=== PATIENT | male | born 1950 | race Hispanic/Latino ===

== ENCOUNTER 2019-04-06 11:06 | Emergency (ER) | payer MEDICARE, MEDICAID ==
[2019-04-06] MEDS ORDERED: Amlodipine 5 MG TAB ONE (12:02)
[2019-04-06 12:16] LABS: #Lymphocytes 1.4 thou/uL (1.20-3.40); #Monocytes 0.3 thou/uL (0.11-0.59); #Neutrophils 4.6 thou/uL (1.40-6.50); %Basophils 0.5 % (0.0-1.0); %Eosinophils 0.5 % (0.0-10.0); %Lymphocytes 21.6 % (21.0-51.0); %Monocytes 4.3 % (0.0-10.0); %Neutrophils 73.1 % (42.0-75.0); Hemoglobin 13.2 g/dL (14.0-18.0); Mean Corpuscular Hemoglobin 28.5 pg (27.0-31.0); Mean Corpuscular Volume 89.2 fL (78.0-98.0); Mean Platelet Volume 8.2 fL (7.4-10.4); Platelet Count 121 thou/uL (130-400); RBC Distribution Width 12.8 % (11.5-14.5); Red Blood Cell (RBC) Count 4.61 mill/uL (4.70-6.10); White Blood Cell (WBC) Count 6.3 thou/uL (4.8-10.8)
--- NOTE | 2019-04-06 12:25 | RAD ---
Chest AP view INDICATION: Chest pain with right-sided hernia COMPARISON: June 24, 2015 FINDINGS: Lungs:The lungs are clear Cardiac silhouette:Heart size is accentuated by exam technique. Pulmonary vasculature:Normal Pleural spaces:No pleural effusion or pneumothorax is demonstrated. Upper abdomen:No abnormality seen. Osseous structures: Stable healed fracture deformity of the left mid shaft clavicle. No acute osseous abnormality. Additional findings:None. IMPRESSION: No acute cardiopulmonary abnormality.
[2019-04-06 12:32] LABS: ALT (SGPT) 15 U/L (8-55); AST (SGOT) 16 U/L (5-34); Alkaline Phosphatase 65 U/L (40-110); Anion Gap 13 mmol/L (10-20); BUN (Urea Nitrogen) 16 mg/dL (8.4-25.7); Bilirubin, Total 0.6 mg/dL (0.2-1.2); Calc. Creatinine Clearance 0 mL/min (70-130); Calcium 8.9 mg/dL (7.8-10.44); Carbon Dioxide 27 mmol/L (23-31); Chloride 105 mmol/L (98-107); Estimated GFR-MDRD 72; Globulin 3.6 g/dL (2.4-3.5); Glucose 88 mg/dL (80-115); Potassium 4.5 mmol/L (3.5-5.1); Protein, Total 7.6 g/dL (5.8-8.1); Sodium 140 mmol/L (136-145)
== END 2019-04-06 13:30 | disposition home or self-care (01) ==
LOC: MADERS 11:06
DX: K40.90 Unilateral inguinal hernia, without obstruction or gangrene, not specified as recurrent (principal); I10 Essential (primary) hypertension
CPT/HCPCS: 71045; 80053; 83880; 85025; 93005

== ENCOUNTER 2020-02-06 16:15 | Inpatient (IN) | payer MEDICARE, OTHER ==
[2020-02-06] MEDS: Acetaminophen 325 MG TAB PO SCH ×2 (17:07→23:58)
[2020-02-06] MEDS: Triple Antibiotic Oint 1 GM Packet TOP SCH (21:01)
[2020-02-06] MEDS: Famotidine 20 MG TAB PO SCH (21:01)
[2020-02-06] MEDS: Cyclobenzaprine 10 MG TAB PO PRN (21:02)
[2020-02-06] MEDS: Senokot S 8.6-50 MG TAB PO SCH (21:02)
[2020-02-07] MEDS: Acetaminophen 325 MG TAB PO SCH ×4 (05:30→22:32)
[2020-02-07] MEDS: Acetaminophen/Codeine 30-300mg Tablet PO PRN ×2 (08:29→22:34)
[2020-02-07] MEDS: Senokot S 8.6-50 MG TAB PO SCH ×2 (08:29→22:31)
[2020-02-07] MEDS: Famotidine 20 MG TAB PO SCH ×2 (08:29→22:30)
[2020-02-07] MEDS: Polyethylene Glycol 3350 17 GM Packet PO SCH (08:31)
[2020-02-07] MEDS: Lisinopril 20 MG TAB PO SCH (08:31)
[2020-02-07] MEDS: Triple Antibiotic Oint 1 GM Packet TOP SCH ×3 (08:31→22:33)
[2020-02-07] MEDS: Amlodipine 5 MG TAB PO SCH (08:42)
[2020-02-07] MEDS ORDERED: FLU VACC QS2020-21(65YR UP)/PF 240 MCG/0.7 ML SYRINGE IM ONE (09:00)
[2020-02-07 18:18] VITALS: BMI 25.8
[2020-02-08] MEDS: Cyclobenzaprine 10 MG TAB PO PRN (01:09)
[2020-02-08] MEDS: Acetaminophen 325 MG TAB PO SCH ×2 (05:22→11:56)
--- NOTE | 2020-02-08 05:23 | HP ---
REASON FOR ADMISSION: Skilled rehab in [facility] after recent hospitalization. NEUROSURGEON: Dr. Foley. HISTORY OF THE PRESENT ILLNESS AND HOSPITAL COURSE: Mr. Lane is a 69-year-old male, who has a history of ground level fall. The patient was reported to be pulling a tree stump when it let loose causing him to fall backwards, hitting his left side of the head. Per report, the patient did have a brief loss of consciousness with no other associated symptoms. He presented initially to [facility] with a GCS of 15. CT of the Brain in 02/04/2020 showed acute traumatic 3cm, right lateral temporal lobe intraaxial hematoma; acute traumatic subdural hematoma, along right tentorium cerebelli; acute traumatic petechial parenchymal hemorrhages with possible adjacent traumatic subarachnoid hemorrhage at right temporal tip; acute traumatic ,nondisplaced left temporal bone fracture. Chest Xray showed multiple old traumatic fractures of the left clavicle and left ribs. CT of cervical spine showed evidence of possible intraparenchymal hemorrhage. in the right temporal lobe,subdural hemorrhage at right tentorium, Left mastoid and Questionable fracture of the medial left third rib posteriorly;temporal bone fracture; hemorrhagic fluid within the right and left maxillary sinuses..Probable several less than 0.4 pulmonary nodules in the right and left apices region. The patient was then transferred subsequently to [facility] for further neurosurgical evaluation and observation. The patient was initially on a Cardene drip due to severe hypertension. He was also started on Amlodipine on the day of admission. As blood pressure has stabilized, the patient was started back on Lisinopril and Cardene drip was discontinued. It was reported that patient was supposed to be on both Lisinopril and Amlodipine per home medications but reported not taking the medications prior to this admission. His repeat CT of the head at [facility] showed stable hemorrhagic contusion of the right posterotemporal lobe and subdural hemorrhage along the right tentorium and posterior falx, suggestive of trace subarachnoid hemorrhage along the left superior frontal convexity that is unchanged. CT scan of the auditory canal without contrast on 02/05/2020 showed longitudinal fracture of the left temporal lobe. Neurosurgeon reports that this is likely an L1 compression fracture that neurosurgeon indicated that this does not require a brace or surgical intervention. The patient was then placed on pain regimen for his back. Speech, Physical, and Occupational Therapy were consulted and worked with the patient. The patient was reported to have some difficulties ambulating initially. After stabilizing the patient, it was deemed that the patient would benefit further from skilled rehab or swing bed for continued physical and occupational therapy. He was then transferred to [facility] on 02/06/2020 with stable condition. Upon admission, the patient was awake, alert, oriented with spontaneous speech. He reports pain mostly on the lower thoracic region. He denies significant headache. His initial admitting vital signs showed moderately elevated systolic blood pressure of 160/87. Otherwise, the patient reports no other new concerns at this time. The patient could hardly contribute to his history, no family was present at bedside during the assessment. Most of the information were taken from the hospital records. PAST MEDICAL HISTORY: Hypertension, previously on Norvasc and lisinopril, but admits has not been taking his medications lately or prior to this hospitalization. PAST SURGICAL HISTORY: Inguinal hernia in 2019. SOCIAL HISTORY: Lives at home with his . Denies alcohol, illicit drug use, or smoking history. ALLERGIES: NKDA. MEDICATIONS: Lisinopril 20 mg po qd; Amlodipine 10 mg po QD Tylenol #3 po qd. Polyethylene Glicol 17 gram PO QD; Senosside Docusate PO BID; Tylenol 650 PO q 6hr,prn. REVIEW OF SYSTEMS: GENERAL: Denies fever, chills. Reports fatigue and general weakness. HEENT: Denies acute visual changes, hearing changes, or cold symptoms. RESPIRATORY: Denies cough, pain with breathing, sputum production/bloody sputum, wheezing. CARDIO: Denies chest pain, palpitations, dyspnea on exertion. GI: Denies nausea, vomiting, abdominal pain, diarrhea/constipation, or incontinence. GENITOURINARY: Denies dysuria, hematuria, frequency, urgency, or incontinence. MUSCULOSKELETAL: As per HPI. Denies joint swelling, myalgia. SKIN: Has abrasions on the left ear and scalp. No rashes. No pruritus. NEUROLOGIC: Reports lost of consciousness as per HPI. No acute motor or sensory changes, loss of coordination. Gait is unsteady. PSYCH: Denies depressive symptoms or anxiety, insomnia. PHYSICAL EXAMINATION: VITAL SIGNS: Blood pressure 161/87, temperature 99.7, pulse 89, respirations 20, and O2 saturation 96% on room air. GENERAL: The patient is awake, alert, and oriented x3. Not in distress. Spontaneous speech, Vietnamese speaking. HEENT: Normocephalic. PERRL. Intact EOM. Anicteric sclerae. Mildly swollen left ear upper lobe, Oral mucosa is moist.Tongue is in midline,no tremors. NECK: Supple, Limited CSpine ROM due to discomfort. No swelling noted. C-SPINE: With full ROM. No swelling. Nontender to palpation. Flat JVD. No carotid bruit. CHEST: Normal excursion. Nonlabored breathing. RESPIRATORY: Clear to auscultation bilaterally. No rales. No wheezing. No crackles. No rhonchi. ABDOMEN: Soft, flat, nondistended. Normoactive bowel sounds. Nontender. No rebound or guarding. Reports flank tenderness on direct palpation bilaterally. MUSCULOSKELETAL: No joint effusion. No erythema. Moves all extremities symmetrically. SKIN: Superficial laceration on the left earlobe, upper part, covered with dry blood. Superficial laceration on the temporal region behind the left ear. No signs of infection. No periwound erythema. No drainage. NEUROLOGIC: Awake, alert x3. Answers simple questions with appropriateness. follows simple commands. DTRs 2+. Nonfocal. Grossly intact CN II-XII as tested. OTHER LABS AND TESTS: 02/06/2020, WBC 12.9, hemoglobin 13.3, hematocrit 38.8, and platelets 170. PT 15.8, INR 1.2, aPTT 34.4. Sodium 138, potassium 3.3, BUN 13, creatinine 0.80, eGFR greater than 90, glucose 105, magnesium 2, and phosphorus 2.5. CK kinase on 02/04/2020, 472. COVID PCR 02/04/2020, not detected. Thoracic spine x-ray on 02/05/2020, no fracture. Lumbar spine x-ray on 02/05/2020, possible acute compression fracture of the L1. Chest x-ray, no acute pulmonary findings with multiple old traumatic fractures of the left clavicle and left ribs. Brain CT with 3 x 2 cm acute intraaxial hematoma at the lateral aspect of the right temporal lobe with multiple focal hemorrhages in the anterior portion of the right temporal lobe at the temporal tip and possibly adjacent subarachnoid hemorrhage. There is a subdural hematoma along the right side of the tentorium cerebelli. There is a nondisplaced linear fracture towards the left mastoid bone, directed to the left middle ear canal, incompletely visualized. CT of the spine with several small pulmonary nodules seen in the lung apices. ASSESSMENT AND PLAN: 1. Physical deconditioning and general weakness. 2. Multiple injuries from traumatic fall. 3. Left skull fracture, right temporal bone fracture, nondisplaced linear fracture of the Left mastoid bone towards the middle ear, likely ruptured tympanic membrane, right tentorium subdural hemorrhage, intraparenchymal hemorrhage of right temporal lobe, possible third left rib fracture versus old fracture. Possible L1 compression fracture. 4. Superficial skin laceration of the left ear lobe and superficial scalp laceration of the left temporal region 3. Incidental findings of several small 0.4 cm pulmonary nodules in the lung apices, by CT scan findings. 4. Fall from standing with loss of consciousness. 5. Hypertension. 6. Unsteady gait. The patient is admitted to [facility] for skilled rehab. Refer to PT,OT, and Speech for evaluation and treatment. Continue current medications tocontrol the BP. Titrate medications appropriately depending on the hospital course. Continue current diet as previously ordered until further recommendations from speech therapist when seen. Wound care with triple antibiotic t.i.d. Estimated Length of Stay: 1-2 weeks Code status, reports full code per wishes. Disposition, home with once appropriate. Job ID: [id number] MTDD
[2020-02-08] MEDS: Triple Antibiotic Oint 1 GM Packet TOP SCH ×2 (09:08→14:59)
[2020-02-08] MEDS: Amlodipine 5 MG TAB PO SCH (09:08)
[2020-02-08] MEDS: Polyethylene Glycol 3350 17 GM Packet PO SCH (09:09)
[2020-02-08] MEDS: Lisinopril 20 MG TAB PO SCH (09:09)
[2020-02-08] MEDS: Famotidine 20 MG TAB PO SCH (09:09)
[2020-02-08] MEDS: Senokot S 8.6-50 MG TAB PO SCH (09:09)
[2020-02-08 17:10] VITALS: BP 132/84; TEMP 98.3
--- NOTE | 2020-02-12 10:02 | DIS ---
DATE OF ADMISSION: 02/06/2020 DATE OF DISCHARGE: 02/08/2020 REASON FOR ADMISSION: Skilled rehab in [facility] after recent hospitalization. DIAGNOSES: 1. Deconditioning, general weakness secondary to recent fall. 2. Multiple injuries from traumatic fall. 3. Left skull fracture, Right temporal bone fracture; nondisplaced linear fracture of the Left mastoid bone towards the middle ear, likely ruptured tympanic membrane, right tentorium subdural hemorrhage, intraparenchymal hemorrhage, right temporal lobe, possible third left rib fracture versus old fracture, possible L1 compression fracture. 4. Left ear abrasion, superficial scalp laceration, left temporal region 5. Incidental findings of several small 0.4 cm pulmonary nodules in the lung apices by CT scan findings. 6. Fall from standing with loss of consciousness. 7. Hypertension. 8. Unsteady gait. 9. Wandering behavior. MEDICATION: 1. Amlodipine 10 mg p.o. daily. 2. Lisinopril 20 mg p.o. daily. 3. Acetaminophen 650 mg p.o. q.6 hours p.r.n. DISPOSITION: Home with . CONDITION ON DISCHARGE: Stable. DIET: Low-salt, low-fat AHA. ACTIVITY: Ad wanda. Recommending 24/7 supervision at home secondary to wandering behavior. HISTORY OF THE PRESENT ILLNESS AND HOSPITAL COURSE: Mr. Lane is a 69-year-old Japanese male with history of fall from a standing position associated with loss of consciousness. The patient sustained multiple injuries from this acute traumatic injury. He was initially seen at [facility] on 02/04/2020, with a GCS of 15. His CT of the brain, CT of the spine, CS spine, and chest x-ray showed acute traumatic 3 cm right lateral temporal lobe intra-axial hematoma, acute traumatic subdural hematoma along the right tentorium cerebelli, acute traumatic petechial parenchymal hemorrhages with possible adjacent traumatic subarachnoid hemorrhage at the right temporal tip, acute traumatic nondisplaced left temporal bone fracture, multiple old traumatic fractures of the left clavicle and left ribs, left mastoid hemorrhage, questionable fracture of the left medial 3rd rib posteriorly, hemorrhagic fluid with the right and left maxillary sinuses, several less than 0.4 cm pulmonary nodules in the right and left apices region. The patient was subsequently transferred to [facility] in [place] for further neurosurgical evaluation and observation. Upon admission, the patient's blood pressure was notably elevated. He was started initially on Cardizem drip and continued on oral medications including amlodipine and lisinopril after blood pressure has been stabilized. A CT of the head at [facility] showed stable findings. A CT scan of the auditory canal without contrast on 02/05/2020 showed no acute evidence of fracture of the left temporal bone. The neurosurgeon evaluated the patient and reports that there was likely an L1 compression fracture. The neurosurgeon indicated this does not require a brace or surgical intervention. The patient was then treated for pain regimen. Physical and occupational therapy were consulted. There were reported difficulties of ambulating initially and after stabilizing the patient, he was recommended to have further rehab in [facility] . On 02/06/2020, patient was transferred to [facility] for rehab purposes. The patient was initially cooperative and takes his medications consistently. He started walking in the first 24 hours of skilled rehab stay. He ambulates without assistance on the second day. On 02/08/2020, the patient has been walking around and wandering all over without use of assistive device. He wears a neck pillow all the time to support his neck. Overall pain was adequately controlled His blood pressure has been stable. Later that day, the patient was reported missing. Patient found in the parking lot wandering around. After redirected, patient cooperated and went back to his room. Within an hour,patient went out the parking lot again. was called and came in. I had a lengthy discussion with the in the presence of the patient. was worried that the patient may get out of the facility again. There were no other significant behavioral issues reported. Patient in the presence of his cooperated well and did his therapy. After discussion with the , It was then decided that the patient may do better at home. Thus, patient was discharged on 02/08/2020. The was recommended that the patient needs 24/7 supervision at least for the next couple of weeks. The requested for home health so patient could continue his therapy at home. Homehealth was arranged prior to discharge. requested that the patient will follow up at [facility] under Dr. Solano, appointment was scheduled. PHYSICAL EXAMINATION: VITAL SIGNS: Blood pressure prior to discharge 132/84, temperature 98.3, pulse 89, respirations 18, O2 saturation 94% to 96% at room air. Weight 160 pounds, height 5 feet 6 inches. GENERAL: The patient is awake, alert, and oriented to person, place, and situation. Comfortable in exam, not in distress. HEENT: Normocephalic. PERRL. Intact EOM. Tongue in the midline. No tremors. No facial asymmetry. Left earlobe is mildly swollen with dry superficial laceration. No signs of infection. NECK: Supple with limited ROM of CS spine secondary to discomfort. The patient wears a neck pillow for support. No swelling. CHEST: Normal excursion. Nonlabored breathing. LUNGS: Clear to auscultation bilaterally. CARDIAC: RRR. Normal S1, S2. No murmurs. ABDOMEN: Flat, soft. Normoactive bowel sounds. Nondistended, nontender. BACK: Spine is intact. No swelling. EXTREMITIES: No edema. No cyanosis. NEUROLOGIC: Nonfocal. Moves all extremities symmetrically. Gait normal without use of assistive device. PSYCHIATRY: Patient is calm, appropriate, cooperative. DISCHARGE INSTRUCTIONS: 1. Follow up with Dr. Solano on Wednesday 10:45 at [facility]. 2. Follow up with Dr. Foley for neurosurgeon care. We called the office of Dr. Foley. They will call back the patient for the appointment. The patient was referred to [facility] prior to discharge for PT, OT, and usp. Time spent on this discharge 38 minutes in examining the patient, coordinating care and arrangement of followups. Job ID: [id number] [facility]
== END 2020-02-08 16:50 | disposition home health service (06) | DRG 948 ==
LOC: MADMS 16:15
PROVIDERS: ADMIT Family Medicine; ATTEND Family Medicine
DX: R53.1 Weakness (principal); W01.0XXD Fall on same level from slipping, tripping and stumbling without subsequent striking against object, subsequent encounter; R26.81 Unsteadiness on feet; R53.81 Other malaise; I10 Essential (primary) hypertension; Z79.899 Other long term (current) drug therapy; Z23 Encounter for immunization; S06.6X1D Traumatic subarachnoid hemorrhage with loss of consciousness of 30 minutes or less, subsequent encounter; S02.19XD Other fracture of base of skull, subsequent encounter for fracture with routine healing; S06.5X1D Traumatic subdural hemorrhage with loss of consciousness of 30 minutes or less, subsequent encounter; S32.019D Unspecified fracture of first lumbar vertebra, subsequent encounter for fracture with routine healing; R91.8 Other nonspecific abnormal finding of lung field
CPT/HCPCS: 90471; 90662; 90732; G0008; G0009

== ENCOUNTER 2023-01-25 13:39 | Outpatient (CLI) | payer MEDICARE, MEDICAID ==
[2023-01-25 14:13] LABS: #Eosinphils 0.1 thou/uL (0.0-0.7); #Lymphocytes 1.6 thou/uL (1.20-3.40); #Monocytes 0.3 thou/uL (0.11-0.59); #Neutrophils 3.8 thou/uL (1.40-6.50); %Basophils 0.8 % (0.0-1.0); %Eosinophils 1.5 % (0.0-10.0); %Lymphocytes 27.6 % (21.0-51.0); %Monocytes 5.6 % (0.0-10.0); %Neutrophils 64.5 % (42.0-75.0); Hematocrit 41.2 % (42.0-52.0); Hemoglobin 13.4 g/dL (14.0-18.0); Mean Corpuscular HGB CONC 32.5 g/dL (32.0-36.0); Mean Corpuscular Hemoglobin 29.4 pg (27.0-31.0); Mean Corpuscular Volume 90.7 fl (78.0-98.0); Mean Platelet Volume 10.1 fL (7.4-10.4); Platelet Count 109 10x3/uL (130-400); RBC Distribution Width 13.4 % (11.5-14.5); Red Blood Cell (RBC) Count 4.55 mill/uL (4.70-6.10); White Blood Cell (WBC) Count 5.8 10x3/uL (4.8-10.8)
[2023-01-25 14:17] LABS: ALT (SGPT) 16 U/L (8-55); AST (SGOT) 17 U/L (5-34); Albumin 3.8 g/dL (3.4-4.8); Alkaline Phosphatase 66 U/L (40-110); Anion Gap 13 mmol/L (10-20); BUN (Urea Nitrogen) 18 mg/dL (8.4-25.7); Bilirubin, Total 0.4 mg/dL (0.2-1.2); Calc. Creatinine Clearance 0 mL/min (70-130); Calcium 8.4 mg/dL (7.8-10.44); Carbon Dioxide 22 mmol/L (23-31); Cardiac Risk 3.7 (Less than 4.5); Chloride 108 mmol/L (98-107); Cholesterol 161 mg/dl (< 200 Desired); Estimated GFR 85; Globulin 3.7 g/dL (2.4-3.5); Glucose 81 mg/dL (83-110); HDL Cholesterol 43 mg/dL (>60 Neg Risk); LDL Cholesterol, Calculated 105 mg/dL; Potassium 3.8 mmol/L (3.5-5.1); Protein, Total 7.5 g/dL (5.8-8.1); Sodium 139 mmol/L (136-145); Triglycerides 67 mg/dL (Less than 150)
[2023-01-25 14:36] LABS: Platelet Adequacy Comment Appears Decreased
== END 2023-01-25 13:40 | disposition home or self-care (01) ==
LOC: MADLABBHPM 13:39
PROVIDERS: ATTEND Family Medicine
DX: I10 Essential (primary) hypertension (principal); D69.6 Thrombocytopenia, unspecified; R97.20 Elevated prostate specific antigen [PSA]
CPT/HCPCS: 80053; 80061; 84153; 84154; 85025